=== PATIENT | female | born 1990 | race African-American/Black ===

== ENCOUNTER 2016-03-23 11:56 | Emergency (ER) | payer OTHER ==
[~2016-03-23] VITALS: Ht 160 cm; Wt 61.2 kg
[~2016-03-23 11:56] MED LIST: MEDROXYPROG150 MG/ML IM; NAPROSYN375 MG PO; ZOFRAN ODT4 MG PO
--- NOTE | 2016-03-23 13:49 | ED GI/GU/ABDOMINAL COMPLAINT ---
History of Present Illness General Chief Complaint: Abdominal Pain/Flank Pain Stated Complaint: ABD PAIN Source: patient Exam Limitations: no limitations Allergies Coded Allergies: NO KNOWN ALLERGIES (07/20/13) Reconcile Medications Medroxyprogesterone Acetate 150 MG/ML SYRINGE 1 ML IM Q3M CONTROL ( Reported) Naproxen (Naprosyn) 375 MG TABLET 1 TAB PO BID PRN HAND PAIN Triage Note: PT TO ER C/C LLQ PAIN INTERMITTENT SINCE THURSDAY. DENIES N/V/D. DENIES URINARY S/S. STATES DOES NOT GET MENSES SECONDARY TO DEPSHOT Triage Nurses Notes Reviewed? yes ? N Is pt currently ? No HPI: This patient is a 25-year-old female with an unremarkable past medical history who presented to the emergency department today for evaluation of abdominal pain. The patient reported that the pain began on and has been intermittent with no provoking or palliative factors. The pain gets up to a 7 out of 10 and is currently a 4 out of 10. The pain is primarily located in her left lower abdomen. The patient reported that the pain occasionally goes from being dull to sharp and radiates up into her chest and back. The patient reported some mild associated nausea, but not currently. She reported that her last bowel movement was yesterday and normal with no constipation or diarrhea. No blood in the stool. The patient denied any fevers, chills, difficulty breathing, palpitations, numbness or tingling in her extremities, jaw pain, arm pain, vomiting, urinary burning, urgency, frequency, or blood in the urine. The patient reported that she is currently on the Depo-Provera shot and has not had her menses in, "a while." The patient is currently refusing any medication for pain or nausea. She is refusing fluids as well. (TOMASA MENEZES,MYLENE) Vital Signs & Intake/Output Vital Signs & Intake/Output ED Intake and Output 03/24 0000 03/23 1200 Intake Total Output Total Balance Patient 135 lb Weight Past History Travel History Traveled to [place] past 21 day No Medical History Any Pertinent Medical History? see below for history Neurological: NONE EENT: NONE Cardiovascular: NONE Respiratory: NONE Gastrointestinal: NONE Hepatic: NONE Renal: NONE Musculoskeletal: NONE Psychiatric: NONE Endocrine: NONE Blood Disorders: NONE Cancer(s): NONE HISTOPATHOLOGY TECHNICIAN/Reproductive: NONE Surgical History Surgical History: N Psychosocial History What is your primary language Indian Tobacco Use: Never used ETOH Use: occasional use Illicit Drug Use: marijuana Family History Hx Contributory? No (MYLENE RANDOLPH PA-C) Review of Systems Review of Systems Constitutional: Reports: no symptoms. EENTM: Reports: no symptoms. Respiratory: Reports: no symptoms. Cardiovascular: Reports: see HPI. GI: Reports: see HPI. Genitourinary: Reports: no symptoms. Musculoskeletal: Reports: see HPI. Skin: Reports: no symptoms. Neurological/Psychological: Reports: no symptoms. All Other Systems: Reviewed and Negative (MYLENE RANDOLPH PA-C) Physical Exam Physical Exam Gastrointestinal: normal bowel sounds, soft, no organomegaly, NO REBOUND OR GUARDING. NO PERITONEAL SIGNS. NEGATIVE MURPHYS SIGN. NO MCBURNYS POINT TENDERNESS. TENDER TO DEEP PALPATION IN THE LEFT LOWER QUADRANT Comments: Well-developed well-nourished person in no acute distress HEENT: Normal EENT exam, moist mucous membranes PERRLA bilaterally Back: Normal gait. Normal inspection Cardiovascular: Regular rate and rhythm with no murmurs, rubs, or gallops Respiratory: Chest nontender. No respiratory distress. Breath sounds clear to auscultation bilaterally with no wheezes, rales, rhonchi Extremity: Normal and equal pulses Neuro: Alert oriented x3, cranial nerves II through XII grossly intact. Skin: No appreciable rash on exposed skin, skin is warm and dry. Psych: Mood and affect is normal Core Measures ACS in differential dx? No Severe Sepsis Present: No Septic Shock Present: No (MYLENE RANDOLPH PA-C) Progress Differential Diagnosis: AAA, AMI, appendicitis, biliary colic, bowel obstruction , colon cancer, cholecystitis, diverticulitis, ectopic , endometritis, gastritis, hepatitis, ischemic bowel, inflamm bowel dis, intrauterine , kidney stone, ovarian cyst, ovarian torsion, pancreatitis, PID/cervicitis, PUD/ GERD, perforated viscous, threatened AB, UTI/pyelo Plan of Care: Orders Procedure Date/time Status Add-on Test (ER Only) 03/23 1342 Active EKG 03/23 1342 Active TROPONIN LEVEL 03/23 1321 Complete URINE 03/23 1316 Complete URINALYSIS 03/23 1316 Complete LIPASE 03/23 1316 Complete DIRECT BILIRUBIN 03/23 1316 Complete COMPREHENSIVE METABOLIC PANEL 03/23 1316 Complete CBC WITHOUT DIFFERENTIAL 03/23 1316 Complete AMYLASE 03/23 1316 Complete Current Medications Sig/Armand Start time Last Medication Dose Stop Time Status Admin Sodium Chloride 1,000 ML BOLUS ONE 03/23 1330 CAN (Normal Saline 0.9%) 03/23 1429 Laboratory Tests 03/23/16 1440: Urine Color YEL, Urine Clarity CLEAR, Urine pH 7.0, Ur Specific [place] 1.020, Urine Protein NEG, Urine Ketones NEG, Urine Nitrite NEG, Urine Bilirubin NEG, Urine Urobilinogen 0.2, Ur Leukocyte Esterase NEG, Ur Microscopic SEDIMENT EXAMINED, Urine RBC 1-3, Urine WBC RARE, Ur Epithelial Cells FEW, Urine Hemoglobin SMALL H, Urine Glucose NEG, Urine Test NEGATIVE 03/23/16 1321: Anion Gap 9, Estimated GFR > 60, BUN/Creatinine Ratio 15.7, Glucose 84, Calcium 9.5, Total Bilirubin 0.5, Direct Bilirubin 0.4, AST 30, ALT 45, Alkaline Phosphatase 62, Troponin I < 0.01, Total Protein 7.8, Albumin 4.4, Globulin 3.4, Albumin/Globulin Ratio 1.3, Amylase 38, Lipase 117, CBC w Diff NO MAN DIFF REQ, RBC 4.35, MCV 89.8, MCH 29.7, RDW 13.4, MPV 10.5 H, Gran % 56.9, Lymphocytes % 30.7, Monocytes % 10.2 H, Eosinophils % 1.9, Basophils % 0.3, Absolute Granulocytes 3.0, Absolute Lymphocytes 1.6, Absolute Monocytes 0.5, Absolute Eosinophils 0.1, Absolute Basophils 0, PUBS MCHC 33.1 Diagnostic Imaging: Viewed by Me: CT Scan. Discussed w/RAD: CT Scan. Radiology Impression: PATIENT: MEI COOK PRESENT AGE: 25 PATIENT ACCOUNT NO: [id number] : 88 LOCATION: [facility] ORDERING PHYSICIAN: MYLENE RANDOLPH PA-C SERVICE DATE: 03/23/16 EXAM TYPE: CAT - CT ABD & PELVIS W/O IV CONTRAS EXAMINATION: CT ABDOMEN AND PELVIS WITHOUT CONTRAST CLINICAL INFORMATION: Left lower quadrant abdominal pain. COMPARISON: CT abdomen and pelvis without contrast 05/06/2013. TECHNIQUE: Multidetector volumetric imaging was performed from the superior aspect of the liver through the pubic symphysis. Sagittal and coronal reformatted images were obtained on the technologist's workstation. DLP: 268 mGy-cm. FINDINGS: Limited evaluation of the solid abdominal viscera in the absence of intravenous contrast. LUNG BASES: The visualized lung bases are unremarkable. LIVER, GALLBLADDER, AND BILIARY TREE : The liver is normal in size, shape, and attenuation. No contour deforming hepatic lesion or biliary ductal dilatation is present. The gallbladder is unremarkable with no evidence of radiopaque gallstones, gallbladder wall thickening, or obvious pericholecystic inflammatory changes. PANCREAS: Unremarkable. SPLEEN: Unremarkable. ADRENAL GLANDS: Unremarkable. KIDNEYS AND URETERS: The kidneys are normal in size, shape and contour. No contour deforming renal lesions are identified. No renal or ureteral stones are identified and there is no hydroureteronephrosis of either kidney or renal collecting system BLADDER: Unremarkable. GASTROINTESTINAL TRACT: Normal anatomic orientation of the stomach relative to the duodenum. Normal caliber of abdominal and pelvic bowel loops, without findings indicative of small bowel obstruction. Feculent material is identified within loops of small bowel, notably within the jejunum and distal ileum. This finding is nonspecific but can be seen in the setting of delayed intestinal transit. There is a moderate amount of retained stool within the colon. No circumferential bowel wall thickening with surrounding inflammatory changes to suggest an underlying infectious or inflammatory enterocolitis. Normal-appearing appendix within the right lower quadrant of the abdomen. No organizing intra-abdominal fluid collections or free intraperitoneal air. ABDOMINAL WALL: No significant hernia is appreciated. LYMPH NODES: No significant abdominal or pelvic adenopathy. VASCULAR: Normal course and caliber of the abdominal aorta and its branching vessels, without aneurysmal dilatation. Limited evaluation for vascular patency in the absence of intravenous contrast. PELVIC VISCERA: Unremarkable. OSSEOUS STRUCTURES: No acute osseous abnormality. IMPRESSION: 1. No acute findings within the abdomen or pelvis to explain patient symptomatology. No significant colonic diverticulosis, or secondary signs of acute diverticulitis. No renal, ureteral or bladder stones. 2. Feculent material within loops of small bowel, indicative of delayed intestinal transit. No findings indicative of small bowel obstruction. Moderate fecal loading of the large bowel, indicative of constipation. DICTATED BY: LAUREN ALFRED MD DATE/ TIME DICTATED:03/23/161524 DRAFTING LAYOUT MAN:BALJIT DATE/TIME TRANSCRIBED: 03/23/161524 CONFIDENTIAL, DO NOT COPY WITHOUT APPROPRIATE AUTHORIZATION. < Electronically signed in Other Vendor System> SIGNED BY: AUBRIE CARMEN,LAUREN 03/23/16 1542 Initial ED EKG: normal axis, normal intervals, normal p-waves, normal QRS complex, normal sinus rhythm, no ST T wave changes, 77 BPM Comments: 03/23/2016 2:25:04 PM: I was at the patient's bedside for reevaluation. She is currently lying comfortably on the stretcher, nontoxic appearing, and in no acute distress. She is still refusing any medication for pain. Updated the patient on the results of her laboratory studies. No increase in white blood cell count. Troponin not elevated. EKG within normal limits. Discussed with this patient that she should be stable for discharge home where she should keep an eye on her symptoms and return for any worsening symptoms. However the patient would like a CT scan of the abdomen and pelvis. I explained the risks of radiation this patient. She would still like the CT scan. This patient does not have an IV in place because she refused. Will order a noncontrast CT scan. 03/23/2016 3:47:56 PM: Updated on the results of her CT scan. No acute findings. The patient still refusing any medication for pain. She feels comfortable to go home at this time. This patient will have GI follow-up for any persistent symptoms. Stable for discharge home at this time. (MYLENE RANDOLPH PA-C) Departure Departure Disposition: HOME OR SELF CARE Condition: Stable Clinical Impression Primary Impression: Abdominal pain Qualifiers: Abdominal location: left lower quadrant Qualified Code: R10.32 - Left lower quadrant pain Referrals: MCKAY CARMEN,MARK Villegas PATIENT HAS NO PRIMARY CARE DR (PCP/Family) Additional Instructions: You may take [id number] Tylenol or Advil for pain. Please be sure to stay hydrated and eat a high fiber diet. You may call the fountain operator's information has been provided to you in this packet for further evaluation and management for any persistent symptoms. Return to the emergency department for any worsening symptoms or concerns. Departure Forms: Customer Survey General Discharge Information (MYLENE RANDOLPH PA-C) PA/COLLAR PADDER BLINDSTITCH Co-Sign Statement Statement: ED Attending supervision documentation- [] I saw and evaluated the patient. I have also reviewed all the pertinent lab results and diagnostic results. I agree with the findings and the plan of care as documented in the PA's/COLLAR PADDER BLINDSTITCH's documentation. x I have reviewed the ED Record and agree with the PA's/COLLAR PADDER BLINDSTITCH's documentation. [] Additions or exceptions (if any) to the PAs/COLLAR PADDER BLINDSTITCH's note and plan are summarized below: [] (KYLIE CARMEN,DUSTIN)
[2016-03-23 13:57] LABS: ABSOLUTE BASOPHIL COUNT 0 /CUMM (0.0-0.2); ABSOLUTE EOSINOPHIL COUNT 0.1 /CUMM (0.0-0.7); ABSOLUTE LYMPH COUNT 1.6 /CUMM (1.2-3.4); ABSOLUTE MONOCYTE COUNT 0.5 /CUMM (0.10-0.60); BASOPHIL % 0.3 % (0.0-2.0); EOSINOPHIL % 1.9 % (0-5); GRANULOCYTE % 56.9 % (42.2-75.2); HEMATOCRIT 39.1 % (37-47); MEAN CORPUSCULAR HGB 29.7 PG (27.0-31.0); MEAN CORPUSCULAR HGB CONC 33.1 G/DL (33.0-37.0); MEAN CORPUSCULAR VOLUME 89.8 FL (81.0-99.0); MEAN PLATELET VOLUME 10.5 FL (7.4-10.4); PLATELET COUNT 175 /CUMM (130-400); RBC DISTRIBUTION WIDTH 13.4 % (11.5-14.5); RED BLOOD CELL CT 4.35 /CUMM (4.20-5.40); WHITE BLOOD CELL COUNT 5.3 /CUMM (4.8-10.8)
[2016-03-23 15:25] VITALS: BP 118/62
--- NOTE | 2016-03-23 15:42 | CT SCAN REPORT ---
EXAMINATION: CT ABDOMEN AND PELVIS WITHOUT CONTRAST CLINICAL INFORMATION: Left lower quadrant abdominal pain. COMPARISON: CT abdomen and pelvis without contrast 05/06/2013. TECHNIQUE: Multidetector volumetric imaging was performed from the superior aspect of the liver through the pubic symphysis. Sagittal and coronal reformatted images were obtained on the technologist's workstation. DLP: 268 mGy-cm. FINDINGS: Limited evaluation of the solid abdominal viscera in the absence of intravenous contrast. LUNG BASES: The visualized lung bases are unremarkable. LIVER, GALLBLADDER, AND BILIARY TREE: The liver is normal in size, shape, and attenuation. No contour deforming hepatic lesion or biliary ductal dilatation is present. The gallbladder is unremarkable with no evidence of radiopaque gallstones, gallbladder wall thickening, or obvious pericholecystic inflammatory changes. PANCREAS: Unremarkable. SPLEEN: Unremarkable. ADRENAL GLANDS: Unremarkable. KIDNEYS AND URETERS: The kidneys are normal in size, shape and contour. No contour deforming renal lesions are identified. No renal or ureteral stones are identified and there is no hydroureteronephrosis of either kidney or renal collecting system BLADDER: Unremarkable. GASTROINTESTINAL TRACT: Normal anatomic orientation of the stomach relative to the duodenum. Normal caliber of abdominal and pelvic bowel loops, without findings indicative of small bowel obstruction. Feculent material is identified within loops of small bowel, notably within the jejunum and distal ileum. This finding is nonspecific but can be seen in the setting of delayed intestinal transit. There is a moderate amount of retained stool within the colon. No circumferential bowel wall thickening with surrounding inflammatory changes to suggest an underlying infectious or inflammatory enterocolitis. Normal-appearing appendix within the right lower quadrant of the abdomen. No organizing intra-abdominal fluid collections or free intraperitoneal air. ABDOMINAL WALL: No significant hernia is appreciated. LYMPH NODES: No significant abdominal or pelvic adenopathy. VASCULAR: Normal course and caliber of the abdominal aorta and its branching vessels, without aneurysmal dilatation. Limited evaluation for vascular patency in the absence of intravenous contrast. PELVIC VISCERA: Unremarkable. OSSEOUS STRUCTURES: No acute osseous abnormality. IMPRESSION: 1. No acute findings within the abdomen or pelvis to explain patient symptomatology. No significant colonic diverticulosis, or secondary signs of acute diverticulitis. No renal, ureteral or bladder stones. 2. Feculent material within loops of small bowel, indicative of delayed intestinal transit. No findings indicative of small bowel obstruction. Moderate fecal loading of the large bowel, indicative of constipation.
== END 2016-03-23 15:57 ==
LOC: ERH 11:56
PROVIDERS: Physician Assistant
DX: R10.32 Left lower quadrant pain (principal)
CPT/HCPCS: 74176; 81001; 81025; 93005; 93010